=== PATIENT | male | born 1945 | race Caucasian/White ===

== ENCOUNTER 2020-11-22 00:40 | Inpatient (IN) | payer MEDICARE, OTHER ==
[~2020-11-22] VITALS: Ht 160 cm; Wt 74.5 kg
[~2020-11-22 00:40] MED LIST: ASPI-482 PO; CELE100C PO; ENOX100D SQ; METO25TA4 PO; NIAC500T PO; POTA10TA4 PO; VALS80TA3 PO; WARF5TAB2 PO; WARF6TAB49 PO; adempas PO
--- NOTE | 2020-11-22 01:18 | PHYS DOC ---
Past Medical History Past Medical History: Diverticulitis, Other (AML) Past Surgical History: Colectomy General Adult EDM: Chief Complaint: MECHANICAL FALL HPI: HPI: Patient is a 75 year old male who was brought here by EMS from home after he had a syncopal episode in his kitchen. Patient said he was walking in his kitchen with a walker to the refrigerator to get something drink, when he passed out , fell forward hit head , face against the REFRIGERATOR DOOR and the left elbow on the floor. Patient is on Eliquis. Patient denies any chest pain or any trouble breathing. Patient denies any back pain, no upper or lower extr emity pain. 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 Patient was recently put on BUMEX and he thinks that he lost too much water. Review of Systems: Review of Systems: Constitutional: Denies fever or chills. [] Eyes: Denies change in visual acuity. [] HENT: Denies nasal congestion or sore throat. [] Respiratory: Denies cough or shortness of breath. [] Cardiovascular: Denies chest pain or edema. [] GI: Denies abdominal pain, nausea, vomiting, bloody stools or diarrhea. [] : Denies dysuria. [] Musculoskeletal: Denies back pain or joint pain. [] Integument: Positive for skin abrasion on left elbow, facial contusion. Neurologic: Denies headache, focal weakness or sensory changes. Positive for syncope Endocrine: Denies polyuria or polydipsia. [] Lymphatic: Denies swollen glands. [] Psychiatric: Denies depression or anxiety. [] Heart Score: C/O Chest Pain: N/A Risk Factors: Risk Factors: DM, Current or recent (<one month) smoker, HTN, HLP, family history of CAD, obesity. Risk Scores: Score 0 - 3: 2.5% MACE over next 6 weeks - Discharge Home Score 4 - 6: 20.3% MACE over next 6 weeks - Admit for Clinical Observation Score 7 - 10: 72.7% MACE over next 6 weeks - Early Invasive Strategies Allergies: Allergies: Allergies Coded Allergies Type Severity Reaction Last Updated Verified bee venom (honey bee) Allergy 04/28/13 Yes nitroglycerin Adverse Reaction 04/28/13 Yes Physical Exam: PE: Constitutional: Well developed, well nourished, no acute distress, non-toxic appearance. [] HENT: Normocephalic, atraumatic, bilateral external ears normal, oropharynx moist, no oral exudates, nose normal. VERY DRIED ORAL MUCOSA. Eyes: PERRLA, EOMI, bilateral congjunctival hemorrhage, worse on left side. NO HYPHEMA. BILATERAL PERIORBITAL SKIN CONTUSION AND HEMATOMA. WOOD LAMP EXAM: NO DYE UPTAKE, NO CORNEA ABRASION, NEGATIVE CAROLE TEST. INTRAOCCULAR PRESSURE OS: 17, OD: 15. Neck: Normal range of motion, no tenderness, supple, no stridor. [] Cardiovascular:Heart rate regular rhythm, no murmur [] Lungs & Thorax: Bilateral breath sounds clear to auscultation [] Abdomen: Bowel sounds normal, soft, no tenderness, no masses, no pulsatile masses. [] Skin: Warm, dry, no erythema, no rash. [] Back: No tenderness, no CVA tenderness. [] Extremities: No tenderness, no cyanosis, no clubbing, ROM intact, no edema. SUPERFICIAL SKIN CONTUSION ON LEFT ELBOW AREA. NO HIP TENDERNESS TO PALPATION. Neurologic: Alert and oriented X 3, normal motor function, normal sensory function, no focal deficits noted. [] Psychologic: Affect normal, judgement normal, mood normal. [] Current Patient Data: Labs: Laboratory Tests Test 11/22/20 01:41 White Blood Count 6.9 x10^3/uL Red Blood Count 3.75 x10^6/uL Hemoglobin 10.3 g/dL Hematocrit 32.7 % Mean Corpuscular Volume 87 fL Mean Corpuscular Hemoglobin 27 pg Mean Corpuscular Hemoglobin Concent 31 g/dL Red Cell Distribution Width 21.6 % Platelet Count 125 x10^3/uL Neutrophils (%) (Auto) 74 % Lymphocytes (%) (Auto) 14 % Monocytes (%) (Auto) 9 % Eosinophils (%) (Auto) 1 % Basophils (%) (Auto) 1 % Neutrophils # (Auto) 5.2 x10^3/uL Lymphocytes # (Auto) 1.0 x10^3/uL Monocytes # (Auto) 0.6 x10^3/uL Eosinophils # (Auto) 0.1 x10^3/uL Basophils # (Auto) 0.1 x10^3/uL Segmented Neutrophils % 78 % Lymphocytes % 15 % Monocytes % 7 % Platelet Estimate Decreased Polychromasia Slight Hypochromasia Slight Poikilocytosis Slight Anisocytosis Mod Spherocytes Occ Ovalocytes Few Helmet Cells Occ Sodium Level 142 mmol/L Potassium Level 4.1 mmol/L Chloride Level 105 mmol/L Carbon Dioxide Level 29 mmol/L Anion Gap 8 Blood Urea Nitrogen 48 mg/dL Creatinine 2.2 mg/dL Estimated GFR (Cockcroft-Gault) 29.5 BUN/Creatinine Ratio 22 Glucose Level 84 mg/dL Calcium Level 9.1 mg/dL Magnesium Level 2.2 mg/dL Total Bilirubin 0.6 mg/dL Aspartate Amino Transf (AST/SGOT) 27 U/L Alanine Aminotransferase (ALT/SGPT) 34 U/L Alkaline Phosphatase 88 U/L Troponin I Quantitative 0.020 ng/mL ZD-Lhb-Y-Type Natriuretic Peptide 2678 pg/mL Total Protein 6.0 g/dL Albumin 3.0 g/dL Albumin/Globulin Ratio 1.0 Current Medications Medications (Trade) Dose Ordered Sig/Lala Route PRN Reason Start Time Stop Time Status Last Admin Dose Admin Tetracaine HCl (Tetracaine) 2 drop 1X ONCE OU 11/22/20 02:45 11/22/20 02:48 DC Fluorescein Sodium (Ful-Tete) 2 strip 1X ONCE OU 11/22/20 02:45 11/22/20 02:48 DC Fluorescein Sodium (Ful-Tete) 1 strip STK-MED ONCE .ROUTE 11/22/20 02:46 11/22/20 02:46 DC Hydralazine HCl (Apresoline Inj) 10 mg 1X ONCE IVP 11/22/20 03:30 11/22/20 03:31 UNV Diphtheria/ Tetanus/Acell Pertussis (ADACEL TDap SYRINGE) 0.5 ml ONCE ONCE VAX IM 11/22/20 03:30 11/22/20 03:31 UNV EKG: EKG: EKG was done at 0 50, heart rate of 59 bpm, sinus rhythm, no ST segment e levation, right bundle branch block Radiology/Procedures: Radiology/Procedures: [][facility] [address] [place] [address] IMAGING REPORT Signed PATIENT: HELIO MALDONADO ACCOUNT: [id number] : 1945 LOCATION: ER AGE: 75 SEX: M EXAM STATUS: REG ER ORD. PHYSICIAN: LILY NIXON DO REASON: fell, neck pain PROCEDURE: CT MAXILLOFACIAL WO CONTRAST CT MAXILLOFACIAL WITHOUT CONTRAST, CT HEAD AND C-SPINE WO dated 11/22/2020 1:23 AM. Comparison: None. Clinical Indication: Reason: fell, neck pain / Spl. Instructions: / History: , HEAD AND NECK PAIN Technical factors: Contiguous 5 mm axial images of the head were obtained from the skullbase to the vertex. No contrast was administered. In addition, 3 mm axial images of the cervical spine and maxillofacial bones were acquired with thin cut coronal and sagittal reconstructions. One or more of the following individualized dose reduction techniques were utilized for this examination: 1. Automated exposure control 2. Adjustment of the mA and/or kV according to patient size 3. Use of iterative reconstruction technique Findings head: Ventricles and sulci are mildly prominent for age. No midline shift or mass effect. Mild patchy low density in the deep/subcortical periventricular white matter. No hemorrhage or extra-axial collection. Posterior fossa and brainstem unremarkable. No apparent calvarial abnormality. IMPRESSION HEAD: 1. No evidence of acute intracranial hemorrhage or mass. 2. Mild chronic small vessel ischemic changes and atrophy. Findings maxillofacial: Orbital tony and maxillary tony are intact. No displaced facial fracture. Zygomatic arches and mandible are intact. Nasal bones are intact. Moderate mucosal thickening of the bilateral ethmoid air cells. Small mucous retention cyst left maxillary sinus. Mastoid air cells are clear. No significant soft tissue abnormality. IMPRESSION MAXILLOFACIAL: 1. No evidence of displaced facial fracture. 2. Mild sinus disease. Findings cervical spine: Images were acquired from the skull base to T3. There is grade 1 anterolisthesis of C3 on C4 with slight retrolisthesis of C5 on C6 and C6 on C7. Vertebral body heights are maintained. Posterior elements are intact. No apparent fracture. Moderate endplate hypertrophic changes throughout with multilevel uncovertebral spurring. There is severe disc space narrowing at C3-C4, C4-C5, C5-C6 and C6-C7. Multilevel facet arthropathy. There is resultant mild central stenosis at the mid to lower cervical levels. Moderate to severe bilateral foraminal stenosis at C5-C6 and C4-C5 and C3-C4. There is also severe left foraminal stenosis at C6- C7. Visualized soft tissue structures are unremarkable. Limited images of lung apices are clear. IMPRESSION CERVICAL SPINE: 1. No evidence of fracture or malalignment. 2. Moderate to severe multilevel spondylosis. Electronically signed by: Rene Colbert MD (11/22/2020 1:35 AM) [facility] [place] DICTATED and SIGNED BY: RENE COLBERT MD DATE: 11/22/20 [id number] 0 Course & Med Decision Making: Course & Med Decision Making Pertinent Labs and Imaging studies reviewed. (See chart for details) Patient is a 75-year-old male who had a syncopal episode today, hit his face against the refrigerator door, caused facial contusion and bilateral conjunctival hemorrhage. Patient is on Eliquis. I discussed with the oil spreader operator on-call Dr. Melvin George, agreed to see patient later for consultation about the conjunctival hemorrhage. Patient blood pressure was elevated. Patient was given hydralazine in the ER. Dean Disclaimer: Dean Disclaimer: This electronic medical record was generated, in whole or in part, using a voice recognition dictation system. Departure Departure Impression: Primary Impression: Syncope and collapse Additional Impressions: Facial contusion Conjunctival hemorrhage of both eyes Hypertension Disposition: ADMITTED INPATIENT Admitting Physician: KATIE (Dr. Niranjan Smallwood) Condition: STABLE Referrals: KAM HIGH (PCP) LILY NIXON DO Nov 22, 2020 01:18
--- NOTE | 2020-11-22 01:37 | RAD ---
CT MAXILLOFACIAL WITHOUT CONTRAST, CT HEAD AND C-SPINE WO dated 11/22/2020 1:23 AM. Comparison: None. Clinical Indication: Reason: fell, neck pain / Spl. Instructions: / History: , HEAD AND NECK PAIN Technical factors: Contiguous 5 mm axial images of the head were obtained from the skullbase to the v ertex. No contrast was administered. In addition, 3 mm axial images of the cervical spine and maxillo facial bones were acquired with thin cut coronal and sagittal reconstructions. One or more of the following individualized dose reduction techniques were utilized for this examinat ion: 1. Automated exposure control 2. Adjustment of the mA and/or kV according to patient size 3. Use of iterative reconstruction technique Findings head: Ventricles and sulci are mildly prominent for age. No midline shift or mass effect. Mild patchy low d ensity in the deep/subcortical periventricular white matter. No hemorrhage or extra-axial collection. Posterior fossa and brainstem unremarkable. No apparent calvarial abnormality. IMPRESSION HEAD: 1. No evidence of acute intracranial hemorrhage or mass. 2. Mild chronic small vessel ischemic changes and atrophy. Findings maxillofacial: Orbital tony and maxillary tony are intact. No displaced facial fracture. Zygomatic arches and florencia ible are intact. Nasal bones are intact. Moderate mucosal thickening of the bilateral ethmoid air cells. Small mucous retention cyst left maxi llary sinus. Mastoid air cells are clear. No significant soft tissue abnormality. IMPRESSION MAXILLOFACIAL: 1. No evidence of displaced facial fracture. 2. Mild sinus disease. Findings cervical spine: Images were acquired from the skull base to T3. There is grade 1 anterolisthesis of C3 on C4 with sli ght retrolisthesis of C5 on C6 and C6 on C7. Vertebral body heights are maintained. Posterior element s are intact. No apparent fracture. Moderate endplate hypertrophic changes throughout with multilevel uncovertebral spurring. There is se nuria disc space narrowing at C3-C4, C4-C5, C5-C6 and C6-C7. Multilevel facet arthropathy. There is re sultant mild central stenosis at the mid to lower cervical levels. Moderate to severe bilateral dafne inal stenosis at C5-C6 and C4-C5 and C3-C4. There is also severe left foraminal stenosis at C6-C7. Visualized soft tissue structures are unremarkable. Limited images of lung apices are clear. IMPRESSION CERVICAL SPINE: 1. No evidence of fracture or malalignment. 2. Moderate to severe multilevel spondylosis. Electronically signed by: Rene Colbert MD (11/22/2020 1:35 AM) [facility]
--- NOTE | 2020-11-22 01:38 | RAD ---
Three-view left elbow dated 11/22/2020. No comparison available. Clinical indication: Pain after fall. FINDINGS: 3 views left elbow show normal bony alignment. No displaced fracture. No apparent fat pad elevation t o suggest joint effusion. No loose body. IMPRESSION: No acute radiographic abnormality. Electronically signed by: Rene Colbert MD (11/22/2020 1:36 AM) [facility]
--- NOTE | 2020-11-22 01:39 | RAD ---
Single view chest dated 11/22/2020 1:36 AM: COMPARISON: None Clinical Indication: Syncopal event. Findings: Single upright portable exam of the chest was performed. Heart and mediastinal contours within normal limits. There is mild tortuosity of the thoracic aorta. Lungs are clear. No consolidation or pleural effusion. No pneumothorax. IMPRESSION: No acute radiographic abnormality. Electronically signed by: Rene Colbert MD (11/22/2020 1:36 AM) [facility]
[2020-11-22 01:48] LABS: BASO # 0.1 x10^3/uL (0.0-0.2); BASO % 1 % (0-3); EOS # 0.1 x10^3/uL (0.0-0.7); EOS % 1 % (0-3); HEMATOCRIT 32.7 % (39.0-53.0); HEMOGLOBIN 10.3 g/dL (13.0-17.5); LYMPH % 14 % (24-48); MEAN CORPUSCULAR HEMOGLOBIN 27 pg (25-35); MEAN CORPUSCULAR HGB CONC 31 g/dL (31-37); MEAN CORPUSCULAR VOLUME 87 fL (79-100); MONO # 0.6 x10^3/uL (0.0-1.1); MONO % 9 % (0-9); NEUT # 5.2 x10^3/uL (1.8-7.7); NEUT % 74 % (31-73); PLATELET COUNT 125 x10^3/uL (140-400); RED BLOOD COUNT 3.75 x10^6/uL (4.30-5.70); RED CELL DISTRIBUTION WIDTH 21.6 % (11.5-14.5); WHITE BLOOD COUNT 6.9 x10^3/uL (4.0-11.0)
[2020-11-22 01:59] LABS: CALCIUM 9.1 mg/dL (8.5-10.1); CREATININE 2.2 mg/dL (0.7-1.3); GFR 29.5; POTASSIUM 4.1 mmol/L (3.5-5.1)
[2020-11-22 02:04] LABS: MAGNESIUM 2.2 mg/dL (1.8-2.4); TOTAL BILIRUBIN 0.6 mg/dL (0.2-1.0)
[2020-11-22 02:16] LABS: % LYMPHS 15 % (24-48); % MONOS 7 % (0-10); % SEGS 78 % (35-66); ANISOCYTOSIS MOD; HYPOCHROMIA SLIGHT; OVALOCYTES FEW; PLT ESTIMATE DECREASED (ADEQUATE); POIKILOCYTOSIS SLIGHT; POLYCHROMASIA SLIGHT
[2020-11-22 02:17] LABS: SPHEROCYTES OCC
[2020-11-22 02:18] LABS: HELMET CELLS OCC
[2020-11-22] MEDS ORDERED: BUME0.5T2 PO (02:22)
[2020-11-22] MEDS ORDERED: BUME1TAB3 PO (02:23)
[2020-11-22] MEDS ORDERED: MONT10TA49 PO (02:24)
[2020-11-22] MEDS ORDERED: APIX2.5T PO (02:24)
[2020-11-22] MEDS ORDERED: DULO20CA PO (02:25)
[2020-11-22] MEDS ORDERED: ACYC-12 PO (02:25)
[2020-11-22] MEDS ORDERED: AMLO10TA4 PO (02:25)
[2020-11-22] MEDS ORDERED: PENI500T PO (02:26)
[2020-11-22] MEDS ORDERED: FLUORESCEIN OPHTH TEST STRIP. OU ONE (02:45)
[2020-11-22] MEDS ORDERED: TETRACAINE 0.5% OPHTH SOLUTION 4ML BOTTLE. OU ONE (02:45)
[2020-11-22] MEDS ORDERED: FLUORESCEIN OPHTH TEST STRIP. ONE (02:46)
[2020-11-22] MEDS ORDERED: DIPH,PERTUSS(ACELL),TET VAC/PF 0.5 ML SYRINGE. VAX IM ONE (03:30)
[2020-11-22] MEDS ORDERED: hydrALAZINE 20 MG/ML VIAL. IVP ONE (03:30)
[2020-11-22] MEDS ORDERED: ONDANSETRON PF 4 MG/2 ML VIAL. IVP PRN ×2 (03:45→08:45)
--- NOTE | 2020-11-22 06:38 | EKG ---
[facility] [address] [place] [address] Test Date: 2020-11-22 Test Time: 00:49:24 Pat Name: HELIO MALDONADO Department: Room: 530 1 Gender: M Construction Supervisor/Carpenter: : 1945 Requested By: LILY NIXON Order Number: [id number] Reading MD: Kaveh Callaway Measurements Intervals Upson Rate: 59 P: 2 WI: 182 QRS: -85 QRSD: 152 T: -2 QT: 488 QTc: 483 Interpretive Statements SINUS RHYTHM ABNORMAL LEFT AXIS DEVIATION LEFT ANTERIOR FASCICULAR BLOCK RIGHT BUNDLE BRANCH BLOCK BIFASCICULAR BLOCK ABNORMAL ECG RI6.02 No previous ECG available for comparison Electronically Signed On 11-22-2020 13:30:23 CDT by Kaveh Callaway
[2020-11-22 07:00] VITALS: BP 140/72
[2020-11-22] MEDS ORDERED: SENNOSIDES 8.6 MG TABLET PO PRN (08:45)
[2020-11-22] MEDS ORDERED: DOCUSATE SODIUM 100 MG CAPSULE. PO PRN (08:45)
[2020-11-22] MEDS ORDERED: ZOLPIDEM 5 MG TABLET. PO PRN (08:45)
[2020-11-22] MEDS ORDERED: ACETAMINOPHEN 325 MG TABLET. PO PRN (08:45)
[2020-11-22] MEDS ORDERED: DEXTROSE 50% 25 GM / 50ML DISP.SYRIN. IV PRN (08:45)
[2020-11-22] MEDS ORDERED: LORazepam 0.5 MG TABLET PO PRN (08:45)
[2020-11-22] MEDS ORDERED: PROCHLORPERAZINE 10 MG/2 ML VIAL. IV PRN (08:45)
--- NOTE | 2020-11-22 08:45 | PDOC1 ---
History and Physical Date of Service: DOS: DATE: 11/22/20 TIME: 08:29 Chief Complaint: Chief Complain: Fall History of Present Illness: HPI: History obtained from discussion with the ED physician and chart review: 75-year-old male with past medical history of diverticulitis status post colectomy with colostomy placement in December 2019, CHF, AML status post bone marrow transplant who comes in after syncopal episode in his kitchen. Patient states that he was walking in the kitchen with a walker to the refrigerator to get a drink but he thinks he passed out first and then fell forward hit his head against the refrigerator door. 75 year old male with past medical history of CHF, diverticulitis status post colectomy and AML with bone marrow transplant who was brought here by EMS from home after he had a syncopal episode in his kitchen. Patient said he was walking in his kitchen with a walker to the refrigerator to get something drink, when he passed out , fell forward hit head , face against the REFRIGERATOR DOOR and the left elbow on the floor. Patient is on Eliquis. Patient denies any chest pain or any trouble breathing. Patient denies any back pain, no upper or lower extremity pain. Patient was recently put on BUMEX and he thinks that he lost too much water. Past Medical/Surgical History: PMH/PSH: Past Medical History: Diverticulitis, AML s/p BMT, CHF Past Surgical History: Colectomy Allergies: Allergies: Coded Allergies: venom-honey bee (Verified Allergy, Unknown, 11/22/20) nitroglycerin (Verified Adverse Reaction, Unknown, 11/22/20) reacts with pt's home medication Family History: Family History: Reviewed with no relevant findings Social History: Social History: Denies any alcohol, tobacco or drug abuse Current Medications: Current Medications Current Medications Tetracaine HCl (Tetracaine) 2 drop 1X ONCE OU Last administered on 11/22/20at 04:43; Start 11/22/20 at 02:45; Stop 11/22/20 at 02:48; Status DC Fluorescein Sodium (Ful-Tete) 2 strip 1X ONCE OU Last administered on 11/22/20at 04:43; Start 11/22/20 at 02:45; Stop 11/22/20 at 02:48; Status DC Fluorescein Sodium (Ful-Tete) 1 strip STK-MED ONCE .ROUTE ; Start 11/22/20 at 02:46; Stop 11/22/20 at 02:46; Status DC Hydralazine HCl (Apresoline Inj) 10 mg 1X ONCE IVP Last administered on 11/22/20at 04:40; Start 11/22/20 at 03:30; Stop 11/22/20 at 03:31; Status DC Diphtheria/ Tetanus/Acell Pertussis (ADACEL TDap SYRINGE) 0.5 ml ONCE ONCE VAX IM Last administered on 11/22/20at 04:42; Start 11/22/20 at 03:30; Stop 11/22/20 at 03:31; Status DC Ondansetron HCl (Zofran) 4 mg PRN Q8HRS PRN IVP NAUSEA/VOMITING; Start 11/22/20 at 03:45; Stop 11/23/20 at 03:44 Influenza Virus Vaccine Quadrival (Flulaval Quad [id number] Syringe) 0.5 ml ONCE ONCE VAX IM ; Start 11/22/20 at 09:00; Stop 11/22/20 at 09:01 Active Scripts Active Reported Penicillin V Potassium 500 Mg Tablet 1 Tab PO BID Cymbalta (Duloxetine Hcl) 20 Mg Capsule.dr 1 Cap PO DAILY Acyclovir 400 Mg Tablet 1 Tab PO BID Norvasc (Amlodipine Besylate) 10 Mg Tablet 10 Mg PO DAILY Montelukast Sodium Tablet (Montelukast Sodium) 10 Mg Tablet 10 Mg PO HS Eliquis (Apixaban) 2.5 Mg Tablet 2.5 Mg PO BID Bumetanide 1 Mg Tablet 2 Tab PO HS Bumetanide 0.5 Mg Tablet 3 Mg PO QAM Lovenox (Enoxaparin Sodium) 100 Mg/1 Ml Disp.syrin 93 Mg SQ DAILY pt taking while coumadin being held for procedure Coumadin (Warfarin Sodium) 6 Mg Tablet 6 Mg PO DAILY 6 Days pt takes 6mg daily for 6 days and 5mg on day 7 Coumadin (Warfarin Sodium) 5 Mg Tablet 5 Mg PO ONCE 1 Days pt takes on day 7 Urocit-K (Potassium Citrate) 10 Meq Tablet.er 10 Meq PO BID Niaspan (Niacin) 500 Mg Tab.er.24h 500 Mg PO QEVNG Metoprolol Tartrate 25 Mg Tablet 12.5 Mg PO DAILY Diovan (Valsartan) 80 Mg Tablet 80 Mg PO DAILY Celebrex (Celecoxib) 100 Mg Capsule 100 Mg PO DAILY Aspir 81 (Aspirin) 81 Mg Tablet.dr 81 Mg PO DAILY [adempas] 2.5 Mg PO DAILY ROS: Review of Systems Review of System REVIEW OF SYSTEMS: GENERAL: Denies weakness SKIN: No bruising, hair changes or rashes. EYES: No blurred, double or loss of vision. NOSE AND THROAT: No history of nosebleeds, hoarseness or sore throat. HEART: No history of palpitations, chest pain or shortness of breath on exertion. LUNGS: Denies cough, hemoptysis, wheezing or shortness of breath. GASTROINTESTINAL: Denies changes in appetite, nausea, vomiting, diarrhea or constipation. GENITOURINARY: No history of frequency, urgency, hesitancy or nocturia. NEUROLOGIC: Denies history of numbness, tingling, or tremor. PSYCHIATRIC: No history of panic, anxiety or depression. ENDOCRINE: No history of heat or cold intolerance, polyuria or polydipsia. EXTREMITIES: Denies joint pain, pain on walking or stiffness. Physical Exam: Vital Signs: Vital Signs Date Time Temp Pulse Resp B/P (MAP) Pulse Ox O2 Delivery O2 Flow Rate FiO2 11/22/20 04:40 63 159/81 11/22/20 04:13 18 96 Room Air 11/22/20 00:42 97.8 97.8 Physcial Exam: General: Well developed, well nourished, no acute distress, well appearing HEENT: Bilateral conjunctival hemorrhage. Periorbital skin contusion. Neck: Supple, no nuchal rigidity, no JVD, trachea midline, no tenderness Cardiac: RRR, no murmurs, no gallops, no rubs Chest/Lungs: CTAB, no wheeze, no rhonchi, no crackles Abdomen: soft, non-distended, no guarding, no peritoneal signs, non-tender Back: No tenderness Extremities: Superficial skin tear on the left elbow. No pedal edema Neuro: Alert and oriented x 4, no focal deficits, normal speech Labs: Labs: Laboratory Tests Test 11/22/20 01:41 White Blood Count 6.9 x10^3/uL (4.0-11.0) Red Blood Count 3.75 x10^6/uL (4.30-5.70) Hemoglobin 10.3 g/dL (13.0-17.5) Hematocrit 32.7 % (39.0-53.0) Mean Corpuscular Volume 87 fL (79-100) Mean Corpuscular Hemoglobin 27 pg (25-35) Mean Corpuscular Hemoglobin Concent 31 g/dL (31-37) Red Cell Distribution Width 21.6 % (11.5-14.5) Platelet Count 125 x10^3/uL (140-400) Neutrophils (%) (Auto) 74 % (31-73) Lymphocytes (%) (Auto) 14 % (24-48) Monocytes (%) (Auto) 9 % (0-9) Eosinophils (%) (Auto) 1 % (0-3) Basophils (%) (Auto) 1 % (0-3) Neutrophils # (Auto) 5.2 x10^3/uL (1.8-7.7) Lymphocytes # (Auto) 1.0 x10^3/uL (1.0-4.8) Monocytes # (Auto) 0.6 x10^3/uL (0.0-1.1) Eosinophils # (Auto) 0.1 x10^3/uL (0.0-0.7) Basophils # (Auto) 0.1 x10^3/uL (0.0-0.2) Segmented Neutrophils % 78 % (35-66) Lymphocytes % 15 % (24-48) Monocytes % 7 % (0-10) Platelet Estimate Decreased (ADEQUATE) Polychromasia Slight Hypochromasia Slight Poikilocytosis Slight Anisocytosis Mod Spherocytes Occ Ovalocytes Few Helmet Cells Occ Sodium Level 142 mmol/L (136-145) Potassium Level 4.1 mmol/L (3.5-5.1) Chloride Level 105 mmol/L (98-107) Carbon Dioxide Level 29 mmol/L (21-32) Anion Gap 8 (6-14) Blood Urea Nitrogen 48 mg/dL (8-26) Creatinine 2.2 mg/dL (0.7-1.3) Estimated GFR (Cockcroft-Gault) 29.5 BUN/Creatinine Ratio 22 (6-20) Glucose Level 84 mg/dL (70-99) Calcium Level 9.1 mg/dL (8.5-10.1) Magnesium Level 2.2 mg/dL (1.8-2.4) Total Bilirubin 0.6 mg/dL (0.2-1.0) Aspartate Amino Transf (AST/SGOT) 27 U/L (15-37) Alanine Aminotransferase (ALT/SGPT) 34 U/L (16-63) Alkaline Phosphatase 88 U/L (46-116) Troponin I Quantitative 0.020 ng/mL (0.000-0.055) HU-Nra-I-Type Natriuretic Peptide 2678 pg/mL (0-124) Total Protein 6.0 g/dL (6.4-8.2) Albumin 3.0 g/dL (3.4-5.0) Albumin/Globulin Ratio 1.0 (1.0-1.7) Laboratory Tests Test 11/22/20 01:41 White Blood Count 6.9 x10^3/uL (4.0-11.0) Red Blood Count 3.75 x10^6/uL (4.30-5.70) Hemoglobin 10.3 g/dL (13.0-17.5) Hematocrit 32.7 % (39.0-53.0) Mean Corpuscular Volume 87 fL (79-100) Mean Corpuscular Hemoglobin 27 pg (25-35) Mean Corpuscular Hemoglobin Concent 31 g/dL (31-37) Red Cell Distribution Width 21.6 % (11.5-14.5) Platelet Count 125 x10^3/uL (140-400) Neutrophils (%) (Auto) 74 % (31-73) Lymphocytes (%) (Auto) 14 % (24-48) Monocytes (%) (Auto) 9 % (0-9) Eosinophils (%) (Auto) 1 % (0-3) Basophils (%) (Auto) 1 % (0-3) Neutrophils # (Auto) 5.2 x10^3/uL (1.8-7.7) Lymphocytes # (Auto) 1.0 x10^3/uL (1.0-4.8) Monocytes # (Auto) 0.6 x10^3/uL (0.0-1.1) Eosinophils # (Auto) 0.1 x10^3/uL (0.0-0.7) Basophils # (Auto) 0.1 x10^3/uL (0.0-0.2) Segmented Neutrophils % 78 % (35-66) Lymphocytes % 15 % (24-48) Monocytes % 7 % (0-10) Platelet Estimate Decreased (ADEQUATE) Polychromasia Slight Hypochromasia Slight Poikilocytosis Slight Anisocytosis Mod Spherocytes Occ Ovalocytes Few Helmet Cells Occ Sodium Level 142 mmol/L (136-145) Potassium Level 4.1 mmol/L (3.5-5.1) Chloride Level 105 mmol/L (98-107) Carbon Dioxide Level 29 mmol/L (21-32) Anion Gap 8 (6-14) Blood Urea Nitrogen 48 mg/dL (8-26) Creatinine 2.2 mg/dL (0.7-1.3) Estimated GFR (Cockcroft-Gault) 29.5 BUN/Creatinine Ratio 22 (6-20) Glucose Level 84 mg/dL (70-99) Calcium Level 9.1 mg/dL (8.5-10.1) Magnesium Level 2.2 mg/dL (1.8-2.4) Total Bilirubin 0.6 mg/dL (0.2-1.0) Aspartate Amino Transf (AST/SGOT) 27 U/L (15-37) Alanine Aminotransferase (ALT/SGPT) 34 U/L (16-63) Alkaline Phosphatase 88 U/L (46-116) Troponin I Quantitative 0.020 ng/mL (0.000-0.055) EW-Lee-I-Type Natriuretic Peptide 2678 pg/mL (0-124) Total Protein 6.0 g/dL (6.4-8.2) Albumin 3.0 g/dL (3.4-5.0) Albumin/Globulin Ratio 1.0 (1.0-1.7) Images: Images PROCEDURE: CT HEAD AND CERVICAL SPINE WO CT MAXILLOFACIAL WITHOUT CONTRAST, CT HEAD AND C-SPINE WO dated 11/22/2020 1:23 AM. Comparison: None. Clinical Indication: Reason: fell, neck pain / Spl. Instructions: / History: , HEAD AND NECK PAIN Technical factors: Contiguous 5 mm axial images of the head were obtained from the skullbase to the vertex. No contrast was administered. In addition, 3 mm axial images of the cervical spine and maxillofacial bones were acquired with thin cut coronal and sagittal reconstructions. One or more of the following individualized dose reduction techniques were utilized for this examination: 1. Automated exposure control 2. Adjustment of the mA and/or kV according to patient size 3. Use of iterative reconstruction technique Findings head: Ventricles and sulci are mildly prominent for age. No midline shift or mass effect. Mild patchy low density in the deep/subcortical periventricular white matter. No hemorrhage or extra-axial collection. Posterior fossa and brainstem unremarkable. No apparent calvarial abnormality. IMPRESSION HEAD: 1. No evidence of acute intracranial hemorrhage or mass. 2. Mild chronic small vessel ischemic changes and atrophy. Findings maxillofacial: Orbital tony and maxillary tony are intact. No displaced facial fracture. Zygomatic arches and mandible are intact. Nasal bones are intact. Moderate mucosal thickening of the bilateral ethmoid air cells. Small mucous retention cyst left maxillary sinus. Mastoid air cells are clear. No significant soft tissue abnormality. IMPRESSION MAXILLOFACIAL: 1. No evidence of displaced facial fracture. 2. Mild sinus disease. Findings cervical spine: Images were acquired from the skull base to T3. There is grade 1 anterolisthesis of C3 on C4 with slight retrolisthesis of C5 on C6 and C6 on C7. Vertebral body heights are maintained. Posterior elements are intact. No apparent fracture. Moderate endplate hypertrophic changes throughout with multilevel uncovertebral spurring. There is severe disc space narrowing at C3-C4, C4-C5, C5-C6 and C6-C7. Multilevel facet arthropathy. There is resultant mild central stenosis at the mid to lower cervical levels. Moderate to severe bilateral foraminal stenosis at C5-C6 and C4-C5 and C3-C4. There is also severe left foraminal stenosis at C6- C7. Visualized soft tissue structures are unremarkable. Limited images of lung apices are clear. IMPRESSION CERVICAL SPINE: 1. No evidence of fracture or malalignment. 2. Moderate to severe multilevel spondylosis. PROCEDURE: ELBOW LEFT 3V Three-view left elbow dated 11/22/2020. No comparison available. Clinical indication: Pain after fall. FINDINGS: 3 views left elbow show normal bony alignment. No displaced fracture. No apparent fat pad elevation to suggest joint effusion. No loose body. IMPRESSION: No acute radiographic abnormality. Assessment/Plan Assessment/Plan Syncope due to vasovagal etiology,possible cardiovascular etiology Hypertensive emergency VICTOR HUGO due to vasomotor nephropathy Moderate protein malnutrition Thrombocytopenia Bilateral periorbital hemorrhage History of CHF, no recent LVEF History of multiple PE, on Eliquis Hx of AML, s/p BMT Hx of Divericulitis s/p colectomy with colostomy Admit to medicine for further work-up Cardiology consult Pending echocardiogram Continue telemetry monitoring Fall precautions Orthostatic vital signs Hold all centrally acting medications Pending medication reconciliation Trend platelets Resume home antihypertensive regimen to maintain systolic blood pressure goals between 140-1 80 Will continue observe for acute vision changes, opthomology unable to visit in the hospital Lovenox for DVT prophylaxis ADA diet Full code Discussed with RN and SW Disposition inpatient management as above Surrogate decision maker is the Justifications for Admission Other Justification KEY DA SILVA MD Nov 22, 2020 08:45
[2020-11-22] MEDS ORDERED: FLU VACC QUAD 21-22 (6MOS+) PF 0.5 ML SYRINGE. VAX IM ONE (09:00)
[2020-11-22] MEDS ORDERED: DULoxetine HCL 20 MG CAPSULE.DR PO SCH ×2 (09:00→21:00)
[2020-11-22] MEDS: METOPROLOL TART IMMED RELEASE 25 MG TABLET. PO SCH (09:50)
[2020-11-22 11:00] VITALS: BP 124/67
--- NOTE | 2020-11-22 11:10 | NUR ---
SW following. Discussed with RN, pt from home with , room air, cardiac diet. PT/OT ordered. SW noted SS consult - awaiting therapy to determine next steps. SW will continue to follow.
--- NOTE | 2020-11-22 11:58 | PDOC2 ---
BETTY SOLIMAN VAULT KEEPER 11/22/20 1157: CARDIAC CONSULT DATE OF CONSULT Date of Consult DATE: 11/22/20 TIME: 11:56 REASON FOR CONSULT Reason for Consult: Syncope REFERRING PHYSICIAN Referring Physician: Marbin SOURCE Source: Chart review, Patient HISTORY OF PRESENT ILLNESS HISTORY OF PRESENT ILLNESS This is a 75 yo male admitted for complains of passing out. He was trying to get a drink in the kitchen and was trying to get a drink around 11 PM. No bending over but started to get lightheaded and fell down and admits losing consciousness. He hit his face on the fridge door while using his walker. No bowel or bladder incontinence and no s/s of seizures. The last time this happened to him was 03/2019 and was told he was dehydrated at that time. No complains of palpitations or chest pain nor SOA. Reports no nausea vomiting diarrhea, fever or chills. Admits drinking about 1 L yesterday the whole day. No vertigo. He finally got help from his after yelling for about 30 minutes. No hx of CAD, arrhythmias but significant for past hx of PE hence on eliquis. He takes BB at home but so far no bradycardia. I stood him up to check for CSH but he started getting dizzy and felt that he needed to lay down. With his fall he did not sustain any fractures but has right subconjunctival hemorrhage with periorbital ecchymoses to both sides. PAST MEDICAL HISTORY Cardiovascular: CHF, HTN, Pulmonary hypertension (treated with adempas) Pulmonary: Pulmonary embolus CENTRAL NERVOUS SYSTEM: Periperal neuropathy GI: Diverticulosis (perforated diverticulitis) Heme/Onc: Anemia NOS, Cancer (acute myeloid leukemia), Other (thrombocytopenia chronis; GVHD) Musculoskeletal: Osteoarthritis, Other (LLE cellulitis; vit D deficiency) Infectious disease: No pertinent hx Renal/: Chronic renal insuff, Other (nephrolithiasis) Endocrine: Osteoporosis (?) Dermatology: Other (stasis dermatitis) PAST SURGICAL HISTORY Past Surgical History: Cataract Removal, Colon Resection, Other (colostomy; ureteroscopy with stent placement) SOCIAL HISTORY Smoke: No ALCOHOL: none Drugs: None Lives: with Family CURRENT MEDICATIONS CURRENT MEDICATIONS Current Medications Medications (Trade) Dose Ordered Sig/Lala Route PRN Reason Start Time Stop Time Status Last Admin Dose Admin Tetracaine HCl (Tetracaine) 2 drop 1X ONCE OU 11/22/20 02:45 11/22/20 02:48 DC 11/22/20 04:43 Fluorescein Sodium (Ful-Tete) 2 strip 1X ONCE OU 11/22/20 02:45 11/22/20 02:48 DC 11/22/20 04:43 Hydralazine HCl (Apresoline Inj) 10 mg 1X ONCE IVP 11/22/20 03:30 11/22/20 03:31 DC 11/22/20 04:40 Diphtheria/ Tetanus/Acell Pertussis (ADACEL TDap SYRINGE) 0.5 ml ONCE ONCE VAX IM 11/22/20 03:30 11/22/20 03:31 DC 11/22/20 04:42 Amlodipine Besylate (Norvasc) 10 mg DAILY PO 11/22/20 09:00 11/22/20 09:50 Metoprolol Tartrate (Lopressor) 12.5 mg DAILY PO 11/22/20 09:00 11/22/20 09:50 ALLERGIES ALLERGIES: Coded Allergies: venom-honey bee (Verified Allergy, Unknown, 11/22/20) nitroglycerin (Verified Adverse Reaction, Unknown, 11/22/20) reacts with pt's home medication ROS Review of System 14 point ROS evaluated with pertinent positives noted per HPI PHYSICAL EXAM General: Alert, Oriented X3, Cooperative, No acute distress HEENT: Atraumatic, Mucous membr. moist/pink, Other (right subconjunctival hemorrhage) Lungs: Clear to auscultation, Normal air movement Heart: Regular rate (SR), Normal S1, Normal S2, No murmurs Abdomen: Soft, No tenderness, Other (colostomy) Extremities: No cyanosis, No edema Skin: Other (periorbital ecchymoses. generalized ecchymoses) Neuro: Normal speech, Sensation intact Psych/Mental Status: Mental status NL, Mood NL MUSCULOSKELETAL: Osteoarthritic changes both hands VITALS/I&O VITALS/I&O: Vital Signs Date Time Temp Pulse Resp B/P (MAP) Pulse Ox O2 Delivery O2 Flow Rate FiO2 11/22/20 09:50 67 140/72 11/22/20 07:00 97.7 18 96 Room Air 97.7 LABS Lab: Laboratory Tests Test 11/22/20 01:41 White Blood Count 6.9 x10^3/uL (4.0-11.0) Red Blood Count 3.75 x10^6/uL (4.30-5.70) L Hemoglobin 10.3 g/dL (13.0-17.5) L Hematocrit 32.7 % (39.0-53.0) L Mean Corpuscular Volume 87 fL (79-100) Mean Corpuscular Hemoglobin 27 pg (25-35) Mean Corpuscular Hemoglobin Concent 31 g/dL (31-37) Red Cell Distribution Width 21.6 % (11.5-14.5) H Platelet Count 125 x10^3/uL (140-400) L Neutrophils (%) (Auto) 74 % (31-73) H Lymphocytes (%) (Auto) 14 % (24-48) L Monocytes (%) (Auto) 9 % (0-9) Eosinophils (%) (Auto) 1 % (0-3) Basophils (%) (Auto) 1 % (0-3) Neutrophils # (Auto) 5.2 x10^3/uL (1.8-7.7) Lymphocytes # (Auto) 1.0 x10^3/uL (1.0-4.8) Monocytes # (Auto) 0.6 x10^3/uL (0.0-1.1) Eosinophils # (Auto) 0.1 x10^3/uL (0.0-0.7) Basophils # (Auto) 0.1 x10^3/uL (0.0-0.2) Segmented Neutrophils % 78 % (35-66) H Lymphocytes % 15 % (24-48) L Monocytes % 7 % (0-10) Platelet Estimate Decreased (ADEQUATE) Polychromasia Slight Hypochromasia Slight Poikilocytosis Slight Anisocytosis Mod Spherocytes Occ Ovalocytes Few Helmet Cells Occ Sodium Level 142 mmol/L (136-145) Potassium Level 4.1 mmol/L (3.5-5.1) Chloride Level 105 mmol/L (98-107) Carbon Dioxide Level 29 mmol/L (21-32) Anion Gap 8 (6-14) Blood Urea Nitrogen 48 mg/dL (8-26) H Creatinine 2.2 mg/dL (0.7-1.3) H Estimated GFR (Cockcroft-Gault) 29.5 BUN/Creatinine Ratio 22 (6-20) H Glucose Level 84 mg/dL (70-99) Calcium Level 9.1 mg/dL (8.5-10.1) Magnesium Level 2.2 mg/dL (1.8-2.4) Total Bilirubin 0.6 mg/dL (0.2-1.0) Aspartate Amino Transferase (AST) 27 U/L (15-37) Alanine Aminotransferase (ALT) 34 U/L (16-63) Alkaline Phosphatase 88 U/L (46-116) Troponin I Quantitative 0.020 ng/mL (0.000-0.055) FJ-Tor-C-Type Natriuretic Peptide 2678 pg/mL (0-124) H Total Protein 6.0 g/dL (6.4-8.2) L Albumin 3.0 g/dL (3.4-5.0) L Albumin/Globulin Ratio 1.0 (1.0-1.7) Laboratory Tests 11/22/20 01:41 Laboratory Tests 11/22/20 01:41 ECHOCARDIOGRAM ECHOCARDIOGRAM [facility] 09/09/2020 Left ventricular systolic function is within normal limits. LVEF 60-65% Mild diastolic dysfunction. Mild mitral regurgitation. Trivial pericardial effusion. HEART CATH HEART CATH FINDINGS: 09/13/2020 [facility] Blood pressure 141/78/104 mmHg, heart rate 59, BSA 1.8, hemoglobin 8.5. RA 12 mmHg with V-wave up to 18 mmHg. RV 46/13. PA 45/20/28 mmHg. PCW 20 with V-wave up to 22 mmHg. TPG 8 mmHg. PVR 1.7 Wood units. SVR 1600. SpO2 of 96%, PA sat 59%. By thermodilution, the cardiac output is 4.7 L/minute, cardiac index 2.6 L/minute per m squared. By Crystal method, cardiac output is 4.6 L/minutes, cardiac index 2.6 L/minute per m squared. CONCLUSIONS: Elevated filling pressures. Pulmonary hypertension. Normal cardiac output. ASSESSMENT/PLAN ASSESSMENT/PLAN 1. Syncope: suspect orthostasis with associated BP regimen and dehydration 2. Fall with right subconjunctival hemorrhage and bilateral periorbital ecchymoses 3. AML: follows with [facility] 4. 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 Chronic RBBB 6. HTN: labile episodes initially but now controlled 7. Chronic diastolic CHF: compensated 8. 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 Opthalmology consulted. Hold eliquis for now. 2. He follows up with [facility] cardi[facility], [facility] through them. 3. Will obtain orthostatic readings, discussed with RN 4. Start IVF TRACEY MARS MD 11/22/20 1408: CARDIAC CONSULT ASSESSMENT/PLAN ASSESSMENT/PLAN The patient was seen and interviewed as well as examined at the bedside. The chart was reviewed. The case was discussed. Agree with the plan of care. BETTY SOLIMAN APRN Nov 22, 2020 11:57 TRACEY MARS MD Nov 22, 2020 14:08
[2020-11-22] MEDS ORDERED: MORPHINE SULFATE 2 MG/ML INJ. IV PRN (12:30)
[2020-11-22] MEDS ORDERED: HYDROcodone/APAP 5/325MG 1 TAB TABLET PO PRN (12:30)
[2020-11-22] MEDS ORDERED: MORPHINE SULFATE 2 MG/ML INJ. IVP PRN (12:30)
[2020-11-22] MEDS: HYDROcodone/APAP 5/325MG 1 TAB TABLET PO PRN (12:38)
[2020-11-22] MEDS ORDERED: IV NORMAL SALINE 1000ML BAG 1,000 ML IV ONE (13:30)
[2020-11-22 15:00] VITALS: BP 114/64
[2020-11-22 19:00] VITALS: BP 153/81
--- NOTE | 2020-11-22 20:27 | NUR ---
Techs doing VS - O2 sats noted to be in the 70's. Pt placed on 2L O2 per NC. 2024: RN rechecked O2 level - 81 on 2L . Pt requesting CPAP - RN paged RT to assist with setting up. Will continue to monitor Addendum: 11/22/20 at 2219 by TABITHA SUTTON RN RN 2125 O2 sats rechecked after pt being on CPAP for approximately 30 min - O2 sats still in low 80's. RT notified needed connector to bleed in O2 with CPAP. 2134: 2L bled into CPAP. Will continue to monitor
[2020-11-22] MEDS ORDERED: ENOXAPARIN 30 MG/0.3 ML SYRINGE. SQ SCH (21:00)
[2020-11-22] MEDS ORDERED: MONTELUKAST SODIUM 10 MG TABLET. PO SCH (21:00)
[2020-11-22 23:00] VITALS: BP 111/74
[2020-11-23 03:00] VITALS: BP 132/72
[2020-11-23] MEDS: HYDROcodone/APAP 5/325MG 1 TAB TABLET PO PRN (05:24)
[2020-11-23 07:00] VITALS: BP 111/65
[2020-11-23 07:51] LABS: BASO % 0 % (0-3); EOS % 1 % (0-3); HEMATOCRIT 33.2 % (39.0-53.0); HEMOGLOBIN 10.2 g/dL (13.0-17.5); LYMPH # 0.8 x10^3/uL (1.0-4.8); LYMPH % 12 % (24-48); MEAN CORPUSCULAR HEMOGLOBIN 27 pg (25-35); MEAN CORPUSCULAR HGB CONC 31 g/dL (31-37); MEAN CORPUSCULAR VOLUME 89 fL (79-100); MONO # 0.7 x10^3/uL (0.0-1.1); MONO % 11 % (0-9); NEUT # 4.9 x10^3/uL (1.8-7.7); NEUT % 76 % (31-73); PLATELET COUNT 114 x10^3/uL (140-400); RED BLOOD COUNT 3.73 x10^6/uL (4.30-5.70); RED CELL DISTRIBUTION WIDTH 22.3 % (11.5-14.5); WHITE BLOOD COUNT 6.5 x10^3/uL (4.0-11.0)
[2020-11-23 08:08] LABS: CALCIUM 8.8 mg/dL (8.5-10.1); CREATININE 2.1 mg/dL (0.7-1.3); GFR 31.1; MAGNESIUM 2.2 mg/dL (1.8-2.4); PHOSPHORUS 4.9 mg/dL (2.6-4.7); POTASSIUM 3.6 mmol/L (3.5-5.1)
[2020-11-23] MEDS: METOPROLOL TART IMMED RELEASE 25 MG TABLET. PO SCH (08:28)
[2020-11-23 10:40] VITALS: BP 151/73
[2020-11-23 10:41] VITALS: BP_SYST 107; BP_SYST 67; BP_DIAS 36; BP_DIAS 63
[2020-11-23] MEDS ORDERED: IV NORMAL SALINE 500ML BAG 500 ML IV ONE (10:45)
[2020-11-23] MEDS ORDERED: IV NORMAL SALINE 1000ML BAG 1,000 ML IV SCH (10:45)
[2020-11-23 11:00] VITALS: BP 179/83
--- NOTE | 2020-11-23 12:34 | PDOC ---
BETTY SOLIMAN OPERATIONS AND MAINTENANCE MANAGER 11/23/20 1234: CARDIO Progress Notes Date and Time Date of Service 11/23/2020 Time of Evaluation 1215 Subjective Subjective: No Chest Pain, No shortness of breath, No Palpitations Vitals Vitals Vital Signs Date Time Temp Pulse Resp B/P (MAP) Pulse Ox O2 Delivery O2 Flow Rate FiO2 11/23/20 10:41 107/63 (78) 11/23/20 10:40 73 11/23/20 07:00 97.9 18 90 BiPAP/CPAP 97.9 11/23/20 05:24 2.0 Weight Weight [ ] Input and Output Intake and Output Intake and Output 11/23/20 07:00 Intake Total 480 ml Output Total 300 ml Balance 180 ml Intake Oral 480 ml Output Urine Total 300 ml Laboratory Labs Laboratory Tests Test 11/23/20 05:55 White Blood Count 6.5 x10^3/uL (4.0-11.0) Red Blood Count 3.73 x10^6/uL (4.30-5.70) Hemoglobin 10.2 g/dL (13.0-17.5) Hematocrit 33.2 % (39.0-53.0) Mean Corpuscular Volume 89 fL (79-100) Mean Corpuscular Hemoglobin 27 pg (25-35) Mean Corpuscular Hemoglobin Concent 31 g/dL (31-37) Red Cell Distribution Width 22.3 % (11.5-14.5) Platelet Count 114 x10^3/uL (140-400) Neutrophils (%) (Auto) 76 % (31-73) Lymphocytes (%) (Auto) 12 % (24-48) Monocytes (%) (Auto) 11 % (0-9) Eosinophils (%) (Auto) 1 % (0-3) Basophils (%) (Auto) 0 % (0-3) Neutrophils # (Auto) 4.9 x10^3/uL (1.8-7.7) Lymphocytes # (Auto) 0.8 x10^3/uL (1.0-4.8) Monocytes # (Auto) 0.7 x10^3/uL (0.0-1.1) Eosinophils # (Auto) 0.0 x10^3/uL (0.0-0.7) Basophils # (Auto) 0.0 x10^3/uL (0.0-0.2) Sodium Level 144 mmol/L (136-145) Potassium Level 3.6 mmol/L (3.5-5.1) Chloride Level 105 mmol/L (98-107) Carbon Dioxide Level 28 mmol/L (21-32) Anion Gap 11 (6-14) Blood Urea Nitrogen 39 mg/dL (8-26) Creatinine 2.1 mg/dL (0.7-1.3) Estimated GFR (Cockcroft-Gault) 31.1 Glucose Level 89 mg/dL (70-99) Calcium Level 8.8 mg/dL (8.5-10.1) Phosphorus Level 4.9 mg/dL (2.6-4.7) Magnesium Level 2.2 mg/dL (1.8-2.4) Physical Exam HEENT: Neck Supple W Full Motion, Other (periorbital ecchymoses) Chest: Symmetric LUNGS: Clear to Auscultation Heart: RRR (SR no ectopies) Abdomen: Soft N/T Extremities: No Calf Tenderness, Other (trace to 1+ bilateral LE pitting edema) Neurology: alert, oriented, follow commands Assessment Assessment 1. Syncope: due to orthostasis. 2. Fall with right subconjunctival hemorrhage and bilateral periorbital ecchymoses 3. AML: follows with [facility] 4. 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 Chronic RBBB 6. HTN: labile episodes initially but now controlled 7. Chronic diastolic CHF: compensated 8. 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 Dill nephrology at Recommendations 1. Opthalmology consulted. Hold eliquis for now. 2. He follows up with cardiology, Dr Roth 3. Push fluids start on midodrine. Avoid laying supine. Discussed with spouse orthostasis is not new for him Justicifation of Admission Dx: Justifications for Admission: Justification of Admission Dx: Yes TRACEY MARS MD 11/23/20 1639: CARDIO Progress Notes Plan Plan The patient was seen and interviewed as well as examined at the bedside. The chart was reviewed. The case was discussed. Agree with the plan of care. BETTY SOLIMAN OPERATIONS AND MAINTENANCE MANAGER Nov 23, 2020 12:34 TRACEY MARS MD Nov 23, 2020 16:39
[2020-11-23] MEDS ORDERED: predniSONE 5 MG TABLET PO SCH (13:00)
--- NOTE | 2020-11-23 13:11 | NUR ---
JULIAN following. Discussed with RN, pt from home with . JULIAN met with pt and pt's at bedside, she would like pt transferred to as pt's physician Dr. Suazo is requesting he be transferred. Dr. Zazueta is agreeable, JULIAN initiated inpatient transfer. Awaiting confirmation of whether pt is accepted or not. JULIAN will continue to follow. Addendum: 11/23/20 at 1436 by VERONICA JORDAN Pt accepted at for inpatient transfer. Accepting physician Dr. Waters. JULIAN faxed requested clinicals to . Pt's , Nadya notified. Awaiting final confirmation and bed assignment. RN notified. Addendum: 11/23/20 at 1705 by VERONICA JORDAN Bed open at for pt, Bed [id number]. RN and pt's Nadya notified. Next available ambulance arranged with [facility]. Transfer request form complete and placed on chart. Report number given to RN. No further SW needs.
[2020-11-23] MEDS ORDERED: MIDODRINE 2.5 MG TABLET PO SCH (13:15)
[2020-11-23 15:00] VITALS: BP 139/76
[2020-11-23] MEDS ORDERED: PRED5TAB PO (16:35)
--- NOTE | 2020-11-23 16:37 | SNU/HH DC ---
DISCHARGE ORDERS DISCHARGE INFORMATION: DISCHARGE DATE: Nov 23, 2020 FINAL DIAGNOSIS Problems Medical Problems: (1) Conjunctival hemorrhage of both eyes Status: Acute (2) Facial contusion Status: Acute (3) Hypertension Status: Acute (4) Syncope and collapse Status: Acute CONDITION ON DISCHARGE: Guarded CODE STATUS: Code Status: Full POST DISCHARGE ORDERS: ACTIVITY ORDERS: Resume previous activity WEIGHT BEARING STATUS: As tolerated DIET AFTER DISCHARGE: Cardiac FOLLOW-UP: PHYSICIAN FOLLOW-UP: PCP within 2 weeks of discharge ADDITIONAL FOLLOW-UP: Oncologist as soon as possible LAB ORDERS FOR FOLLOW-UP: CBC, CMP TREATMENT/EQUIPMENT ORDERS: Physical Therapy For: Evalulation/Treatment Occupational Therapy For: Evaluation/Treatment DISCHARGE MEDICATIONS: Home Meds Active Scripts Prednisone (PREDNISONE) 5 Mg Tablet, 12.5 MG PO DAILY for AML for 30 Days, #75 TAB Prov:KEY DA SILVA MD 11/23/20 Reported Medications Duloxetine Hcl (CYMBALTA) 20 Mg Capsule.dr, 1 CAP PO DAILY, #30 CAP 2 Refills 11/22/20 Amlodipine Besylate (NORVASC) 10 Mg Tablet, 10 MG PO DAILY, TAB 11/22/20 Montelukast Sodium (MONTELUKAST SODIUM TABLET ) 10 Mg Tablet, 10 MG PO HS for FOR ASTHMA, TAB 0 Refills 11/22/20 Apixaban (ELIQUIS) 2.5 Mg Tablet, 2.5 MG PO BID, TAB 11/22/20 Bumetanide (BUMETANIDE) 1 Mg Tablet, 2 TAB PO HS, #90 TAB 1 Refill 11/22/20 Bumetanide (BUMETANIDE) 0.5 Mg Tablet, 3 MG PO QAM, TAB 11/22/20 Enoxaparin Sodium (LOVENOX) 100 Mg/1 Ml Disp.syrin, 93 MG SQ DAILY, #1 pt taking while coumadin being held for procedure 04/28/13 Warfarin Sodium (COUMADIN) 6 Mg Tablet, 6 MG PO DAILY for 6 Days pt takes 6mg daily for 6 days and 5mg on day 7 04/28/13 Warfarin Sodium (COUMADIN) 5 Mg Tablet, 5 MG PO ONCE for 1 Day pt takes on day 7 04/28/13 Potassium Citrate (UROCIT-K) 10 Meq Tablet.er, 10 MEQ PO BID, #1 04/28/13 Niacin (NIASPAN) 500 Mg Tab.er.24h, 500 MG PO QEVNG, #2 04/28/13 Metoprolol Tartrate (METOPROLOL TARTRATE) 25 Mg Tablet, 12.5 MG PO DAILY, #1 04/28/13 Valsartan (DIOVAN) 80 Mg Tablet, 80 MG PO DAILY, #1 04/28/13 Celecoxib (CELEBREX) 100 Mg Capsule, 100 MG PO DAILY, #1 04/28/13 Aspirin (ASPIR 81) 81 Mg Tablet.dr, 81 MG PO DAILY, #1 04/28/13 [adempas] No Conflict Check, 2.5 MG PO DAILY, #1 04/28/13 Discontinued Reported Medications Penicillin V Potassium (PENICILLIN V POTASSIUM) 500 Mg Tablet, 1 TAB PO BID, #20 TAB 11/22/20 Acyclovir (ACYCLOVIR) 400 Mg Tablet, 1 TAB PO BID, #60 TAB 3 Refills 11/22/20 KEY DA SILVA MD Nov 23, 2020 16:37
[2020-11-23] MEDS ORDERED: ALBUTEROL SULFATE 2.5 MG/3 ML NEBU. NEB PRN (17:00)
--- NOTE | 2020-11-23 17:30 | NUR ---
REPORT CALLED TO EVAN (RN) AT [facility], QUESTIONS AND CONCERNS ANSWERED, PATIENT TO BE ADMITTED TO ROOM 4120. PATIENTS' AT THE BEDSIDE AT THIS TIME AND HAS PLACED ALL OF HIS PERSONAL BELONGINGS IN BAGS, PATIENT ALERT AND VERBALLY RESPONSIVE AT THIS TIME, LUNG SOUNDS CLEAR TO DIMINISHED AT THIS TIME, WILL NOT ORDER A CXR FOR THAT REASON.
--- NOTE | 2020-11-23 18:40 | NUR ---
PATIENT LEAVES THE UNIT PER STRETCHER AND ACCOMPANIED BY 2 PARAMEDICS, AT HIS SIDE, EMOTIONAL SUPPORT GIVEN, 24G.SALINE LOCK MAINTAINED IN PATIENTS RIGHT FOREARM REQUESTED BY RECEIVING NURSE.
== END 2020-11-23 18:35 | disposition short-term general hospital (02) | DRG 304 ==
LOC: ER 00:40 → 5 NORTH 03:34
PROVIDERS: ADMIT Student in an Organized Health Care Education/Training Program; ATTEND Student in an Organized Health Care Education/Training Program
PROC: 5A09357 Assistance with Respiratory Ventilation, Less than 24 Consecutive Hours, Continuous Positive Airway Pressure (ICD-10-PCS; principal; 2020-11-23)
DX: I16.1 Hypertensive emergency (principal); N17.0 Acute kidney failure with tubular necrosis; C92.00 Acute myeloblastic leukemia, not having achieved remission; E44.0 Moderate protein-calorie malnutrition; I50.32 Chronic diastolic (congestive) heart failure; Z94.81 Bone marrow transplant status; R55 Syncope and collapse; I13.0 Hypertensive heart and chronic kidney disease with heart failure and stage 1 through stage 4 chronic kidney disease, or unspecified chronic kidney disease; D69.6 Thrombocytopenia, unspecified; H11.33 Conjunctival hemorrhage, bilateral; I27.20 Pulmonary hypertension, unspecified; I45.10 Unspecified right bundle-branch block; N18.9 Chronic kidney disease, unspecified; S00.11XA Contusion of right eyelid and periocular area, initial encounter; S00.12XA Contusion of left eyelid and periocular area, initial encounter; S00.83XA Contusion of other part of head, initial encounter; G62.9 Polyneuropathy, unspecified; M19.90 Unspecified osteoarthritis, unspecified site; H05.233 Hemorrhage of bilateral orbit; K57.90 Diverticulosis of intestine, part unspecified, without perforation or abscess without bleeding; Z88.8 Allergy status to other drugs, medicaments and biological substances; Z68.29 Body mass index [BMI] 29.0-29.9, adult; Z79.01 Long term (current) use of anticoagulants; Z86.711 Personal history of pulmonary embolism; Z87.442 Personal history of urinary calculi; Z90.49 Acquired absence of other specified parts of digestive tract; Z93.3 Colostomy status; Z98.49 Cataract extraction status, unspecified eye
CPT/HCPCS: 36415; 70450; 70486; 71045; 72125; 73080; 80048; 80053; 83735; 83880; 84100; 84484; 85007; 85025; 90471; 90686; 90715; 93005; 94640; 96374; J0360; J1650; J2405; J7040; J7512; 99285-25; G0378; J7613